=== PATIENT | female | born 1950 | race American Indian/Alaskan Native ===

== ENCOUNTER 2020-02-11 07:00 | Emergency (ER) | payer MEDICARE ==
[2020-02-11 07:32] VITALS: BP 157/57
--- NOTE | 2020-02-11 09:59 | Emergency Department Report ---
ED Dizziness HPI - General Chief Complaint: Dizziness Stated Complaint: DIZZY, STOMACH SICK Time Seen by Provider: 02/11/20 09:49 Source: patient Mode of arrival: Ambulatory Limitations: No Limitations - History of Present Illness Initial Comments: The patient was evaluated in the emergency department for symptoms described in the history of present illness. He/she was evaluated in the context of the global COVID-19 pandemic, which necessitated consideration that the patient might be at risk for infection with the virus that causes COVID-19. Insti tutional protocols and algorithms that pertain to the evaluation of patients at risk for COVID-19 are in a state of rapid change based on information released by regulatory bodies including the CDC and federal and state organizations. These policies and algorithms were followed during the patient's care in the emergency department. Please note that these policies, procedures and recommendations changed on a rapid basis. 70-year-old -[place] female presents to the emergency room stating that she has been having bouts of vertigo since last week. Patient states that it feels like the room is spinning. Patient states is worse when she moves her head fast or lays down with her eyes closed. Patient stated she had nausea and vomiting the first day but has intermittent nausea. Patient denies any headache denies any weakness of any limbs. She just states that she is overall feels kind of weak. Patient states she has had a history of vertigo in the past when she has had a ear infection. She also reports that she has lost 15 pounds since October. Patient states she has an appointment with a new primary care provider in February 2020. Patient reports that she recently relocated from [place] here. Patient does admit to a past medical history of hypertension high cholesterol. She is currently on a atorvastatin 80 mg nightly, amlodipine 10 mg daily and Aldactone 25 mg daily. She denies any known drug allergies. MD Complaint: other - Related Data Previous Rx's Medication Instructions Recorded Last Taken Type Meclizine [Antivert] 12.5 mg PO BID PRN #30 tablet 02/11/20 Unknown Rx Ondansetron [Zofran Odt] 4 mg PO Q8HR PRN #12 tab.rapdis 02/11/20 Unknown Rx Allergies Allergy/AdvReac Type Severity Reaction Status Date / Time No Known Allergies Allergy Unverified 02/11/20 07:28 ED Review of Systems ROS: Stated complaint: DIZZY, STOMACH SICK Other details as noted in HPI ED Past Medical Hx - Past Medical History Hx Hypertension: Yes Additional medical history: HIGH CHOLESTROL - Surgical History Past Surgical History?: No - Social History Smoking Status: Never Smoker Substance Use Type: None - Medications Home Medications: Home Medications Medication Instructions Recorded Confirmed Last Taken Type Meclizine [Antivert] 12.5 mg PO BID PRN #30 tablet 02/11/20 Unknown Rx Ondansetron [Zofran Odt] 4 mg PO Q8HR PRN #12 tab.rapdis 02/11/20 Unknown Rx ED Physical Exam - General Limitations: No Limitations General appearance: alert, in no apparent distress - Head Head exam: Present: atraumatic, normocephalic - ENT ENT exam: Present: mucous membranes moist - Respiratory Respiratory exam: Absent: accessory muscle use - Cardiovascular Cardiovascular Exam: Present: regular rate - Neurological Exam Neurological exam: Present: alert, oriented X3, normal gait - Expanded Neurological Exam Expanded Patient oriented to: Present: person, place, time Cranial nerves: EOM's Intact: Normal, Gag Reflex: Normal, Tongue Deviation: Normal, Nystagmus: Normal, Facial Sensation: Normal, Facial Palsy with Forehead Movement: Normal, Facial Palsy without Forehead Movement: Normal Cerebellar function: Finger to Nose: Normal, Heel to Person: Normal, Romberg: Normal Upper motor neuron: Yovanny Neglect: Normal, Pronator Drift: Normal, Sensory Extinction: Normal Sensory exam: Upper Extremity Light Touch: Normal, Upper Extremity Pin Prick: Normal, Upper Extremity Temperature: Normal, UE 2 Point Discrimination: Normal, Lower Extremity Light Touch: Normal, Lower Extremity Pin Prick: Normal, Lower Extremity Temperature: Normal, LE 2 Point Discrimination: Normal Motor strength exam: RUE: 5, LUE: 5, RLE: 5, LLE: 5 Best Eye Response (Zakia): (4) open spontaneously Best Motor Response (Zakia): (6) obeys commands Best Verbal Response (Zakia): (5) oriented Zakia Total: 15 - Psychiatric Psychiatric exam: Present: normal affect, normal mood - Skin Skin exam: Present: warm, dry, intact, normal color. Absent: rash ED Course Vital Signs 02/11/20 07:32 Temperature 98.1 F Pulse Rate 78 Respiratory 16 Rate Blood Pressure 157/57 O2 Sat by Pulse 97 Oximetry ED Medical Decision Making - Medical Decision Making 70-year-old -[place] female presents to the emergency room stating that she has been having bouts of vertigo since last week. Patient states that it feels like the room is spinning. Patient states is worse when she moves her head fast or lays down with her eyes closed. Patient stated she had nausea and vomiting the first day but has intermittent nausea. Patient denies any headache denies any weakness of any limbs. She just states that she is overall feels kind of weak. Patient states she has had a history of vertigo in the past when she has had a ear infection. She also reports that she has lost 15 pounds since October. Patient states she has an appointment with a new primary care provider in February 2020. Patient reports that she recently relocated from [place] here. Patient does admit to a past medical history of hypertension high cholesterol. She is currently on a atorvastatin 80 mg nightly, amlodipine 10 mg daily and Aldactone 25 mg daily. She denies any known drug allergies. Critical care attestation.: If time is entered above; I have spent that time in minutes in the direct care of this critically ill patient, excluding procedure time. ED Disposition Clinical Impression: Vertigo Disposition: DC-01 TO HOME OR SELFCARE Is pt being admited?: No Does the pt Need Aspirin: No Condition: Stable Instructions: How to Perform the Eli Maneuver Additional Instructions: Please take Antivert and Zofran as needed for the dizziness. I am referring you to a neurologist. I am also referring you to a primary care provider. Please do not operate heavy machinery while taking the Antivert. Please try the maneuvers that I have printed out for you as this helps. Prescriptions: Meclizine [Antivert] 12.5 mg PO BID PRN #30 tablet PRN Reason: Vertigo Ondansetron [Zofran Odt] 4 mg PO Q8HR PRN #12 tab.rapdis PRN Reason: Nausea Referrals: PRIMARY CARE, [Primary Care Provider] - 3-5 Days SABRINA SCHNEIDER II, MD [Staff Physician] - 3-5 Days TAMEKA TAPIA FNP [Referring] - 3-[address] [facility] [Provider Group] - 3-5 Days
== END 2020-02-11 10:36 | disposition home or self-care (01) ==
LOC: ED 07:00
DX: R42 Dizziness and giddiness (principal); R11.2 Nausea with vomiting, unspecified; I10 Essential (primary) hypertension; Z79.899 Other long term (current) drug therapy
CPT/HCPCS: 99282